=== PATIENT | male | born 1955 | race Hispanic/Latino ===

== ENCOUNTER → 2022-06-25 | Outpatient (CLI) | payer BC | LOC: NM 09:10 | PROVIDERS: ATTEND Urology | DX: C61 Malignant neoplasm of prostate (principal) | CPT/HCPCS: 78306; A9503 ==

== ENCOUNTER → 2022-07-30 | Day surgery (SDC) | payer BC, OTHER ==
[~2022-07-30] MED LIST: ALIGN4 MG PO; AMLODIPINE BESY10 MG PO; BENICAR20 MG PO; BICALUTAMIDE50 MG PO; CRESTOR5 MG PO; FLOMAX0.4 MG PO; GENTLE LAXATIVE10 MG PR; HYOSCYAMINE0.375 MG PO; LACTATED RINGER'S 1,000 ML ONE; LIDOCAINE HCL 2% LOCAL INJ 5 ML SDV VIAL INJ ONE; METRONIDAZOLE500 MG PO; MIDAZOLAM HCL 2 MG/2 ML VIAL ONE; MIRALAX17 GM PO; PROBIOTIC PO; PROPOFOL IV EMULSION 10 MG/ML 20 ML VIAL ONE; TRICOR145 MG PO
[2022-07-30 11:22] VITALS: TEMP 97.8
[2022-07-30 11:50] VITALS: BP 121/67; PULSE 69; RESP 16; O2SAT 100
== END | disposition home or self-care (01) ==
LOC: OR 08:42
PROVIDERS: ATTEND Internal Medicine Gastroenterology
DX: Z12.11 Encounter for screening for malignant neoplasm of colon (principal); D12.8 Benign neoplasm of rectum; K62.5 Hemorrhage of anus and rectum; K57.30 Diverticulosis of large intestine without perforation or abscess without bleeding; K63.89 Other specified diseases of intestine; K59.00 Constipation, unspecified; K30 Functional dyspepsia; K62.89 Other specified diseases of anus and rectum; K64.8 Other hemorrhoids; C61 Malignant neoplasm of prostate; I10 Essential (primary) hypertension; E78.00 Pure hypercholesterolemia, unspecified; R30.0 Dysuria; Z01.810 Encounter for preprocedural cardiovascular examination; Z79.899 Other long term (current) drug therapy; Z68.36 Body mass index [BMI] 36.0-36.9, adult
CPT/HCPCS: 45380; 93005; J2001; J2250; J2704; J7121; 45378; 45384